=== PATIENT | female | born 1995 | race Two or more races ===

== ENCOUNTER → 2023-03-24 | Emergency (ER) | payer OTHER ==
[~2023-03-24] VITALS: Ht 162.6 cm; Wt 45.8 kg
== END | disposition home or self-care (01) ==
LOC: ER 17:19
DX: E86.0 Dehydration (principal); R11.10 Vomiting, unspecified

== ENCOUNTER 2023-04-07 16:12 | Emergency (ER) | payer OTHER ==
[~2023-04-07] VITALS: Ht 162.6 cm; Wt 45.8 kg
[2023-04-07] MEDS ORDERED: NITROFURANTOIN100 MG PO (19:28)
[2023-04-07] MEDS ORDERED: CLINDAMYCIN PHO40 GM VAG (19:28)
== END 2023-04-07 19:53 | disposition home or self-care (01) ==
LOC: ER 16:12
DX: N76.0 Acute vaginitis (principal); N39.0 Urinary tract infection, site not specified; Z3A.10 10 weeks gestation of pregnancy